=== PATIENT | male | born 1960 | race Caucasian/White ===

== ENCOUNTER 2024-08-28 00:22 | Emergency (ER) | payer OTHER, SELFPAY ==
[2024-08-28 00:25] VITALS: BP 164/96
[2024-08-28] MEDS: NORCO 5/325 1 TABLET PO (01:28)
--- NOTE | 2024-08-31 17:35 | ED.MUSCINJ ---
HPI-Injury
General
Chief Complaint: Musculo-Skeletal Complaint
Source: patient
Exam Limitations: none
Time Seen by Provider: 08/28/24 00:52
Nursing documentation reviewed up to this point in time: agreed with
History of Present Illness-Injury
Is this injury a work related problem?: No
Is pt an associate of [facility]?: No
Initial Injury comments:
Patient to ED with complaint of right knee pain. He has had issues with this knee in the past. No new trauma. States over the past few days his knee has become more painful. Denies fever/chills, recent illness. No erythema to knee. Brought
self to ED for eval.
Past History
Past History
ED Past Medical History: None
Review of Systems
Review of Systems
All Other Systems: ROS reviewed and negative except as documented in HPI and ROS
Constitutional: Reports no symptoms
EENT: Reports no symptoms
Respiratory: Reports no symptoms
Cardiac: Reports no symptoms
ABD/GI: Reports no symptoms
Musculoskeletal: Reports joint pain (Pain to right knee)
Skin: Reports no symptoms
Neurological: Reports no symptoms
Psychiatric: Reports no symptoms
Musculoskeletal Injury Exam
Musculoskeletal Injury Exam
Right Knee:
Pain with Movement?: Moderate
Tender to palpation?: Moderate
Soft tissue swelling?: Mild
External deformity and angulation?: None
Joint effusion?: Mild
Contusion?: None
Hematoma-local bleeding into tissue?: None
Crepitus with movement?: No
Joint instability?: No
Malalignment/deformity?: No
Range of motion: Full
Distal skin color and temperature: normal-warm & good color
Capillary Refill: normal
Normal distal neurovascular exam?: Yes
Peripheral Pulses: posterior tibial (right): 3+ and dorsalis pedis (right): 3+
Phy Exam
General Physical Exam
General Presentation: well appearing and no apparent distress
General age: appears stated age
General Skin: warm and dry
General Habitus: normal
General Mental: alert
Musculoskeletal Exam
Musculoskeletal Exam: full ROM, neuro vasc intact and other (Right knee pain, mild swelling)
Skin Exam
Skin Exam: normal color, warm/dry, no rash and other (No erythema or wounds to right knee)
Psychiatric Exam
Psychiatric Exam: normal mood/affect
Injury Course
Orders/Labs/Results
Orders:
Orders
08/28/24 00:32
Knee, Right 4 or More Views [CR Knee- Right 4 Or More View*] Urgent
Comment:
Reason For Exam: pain
08/28/24 01:05
Knee Immobilizer Right-Treatme ONCE
08/28/24 01:24
Hydrocodone 5/APAP 325 [[place] 5/325] 1 tablet PO NOW STA
*Radiology
Radiology exam reviewed: radiology read reviewed
*Pulse Oximetry
Patient hypoxic: no
*Critical Care Note
Total Time (30-74mins, 75-104mins- exclusive of procedures): Not Applicable
ED Attending Note
-
Portions of this chart may have been created with voice recognition software.� Occasional wrong word or��sound alike� substitutions may have occurred due to the inherent limitations of voice recognition software.
Discharge Plan
Departure
Patient Disposition: Home (Routine Discharge)
Date of Disposition: 08/28/24
Time of Disposition: 01:05
Patient with high blood pressure during this ER visit?: No
Condition: Good
Covid-19: Not Applicable
Discharge Problem:
Acute knee pain
Instructions: Knee Immobilizer (DC), Ibuprofen, Knee Pain (DC), Using Cold for Pain
Prescriptions:
New
methylprednisolone [Medrol (Sharan)] 4 mg tablets,dose pack
See Rx Instructions .ROUTE .COMPLEX Qty: 21 0RF
Rx Instructions:
for 6 days
hydrocodone-acetaminophen 5-325 mg tablet
1 tab PO Q4H PRN (Reason: Pain) Qty: 9 0RF
Activity Restrictions/Additional Instructions:
Folloow up with your [facility] provider through [facility] in AM
Interventions
Interventions:
*Risk Screen - Suicide Last Done: 08/28/24 00:31
*General Assessment Last Done: 08/28/24 01:19
*Neglect/Abuse Screening Last Done: 08/28/24 00:31
ED- Fall Risk Assessment Last Done: 08/28/24 00:56
*ED COVID-19 Vaccine History Last Done: 08/28/24 00:25
*Nursing Disposition Last Done: 08/28/24 01:19
ED-Musculoskeletal Assessment Last Done: 08/28/24 00:54
Discharge Date and Time
Discharge Date/Time: 08/28/24 01:37
Print Language: [place]
== END 2024-08-28 01:37 | disposition home or self-care (01) ==
LOC: EMR 00:22
PROVIDERS: EMERGENCY PHYSICIAN Emergency Medicine
DX: M25.561 Pain in right knee (principal)
CPT/HCPCS: 29505; 99283; 73564